=== PATIENT | female | born 1955 | race Caucasian/White ===

== ENCOUNTER 2024-05-06 22:29 | Inpatient (IN) | payer MEDICARE ==
[~2024-05-06] VITALS: Ht 147.3 cm; Wt 56.7 kg
[2024-05-07] VITALS (9 sets, daily range): BP systolic 106–116; BP diastolic 61–68; PULSE 63–74; RESP 17–20; TEMP 97.7–98.8; O2SAT 95–100
[2024-05-07] MEDS: FAMOTIDINE 20 MG/2 ML VIAL IV STA (00:27)
[2024-05-07] MEDS: ONDANSETRON HCL INJ 2MG/ML 2ML 2 MG/ML VIAL IV STA (00:27)
[2024-05-07] MEDS: SODIUM CHLORIDE 0.9% 1000ML 1,000 ML IV SCH (00:28)
[2024-05-07] MEDS ORDERED: IOPAMIDOL 370 MG/ML 100 ML INFUS..BTL INJ ONE ×2 (00:41→06:15)
[2024-05-07] MEDS ORDERED: ONDANSETRON HCL INJ 2MG/ML 2ML 2 MG/ML VIAL IV PRN (01:45)
[2024-05-07] MEDS ORDERED: D5.45%NS/KCL 20MEQ 1,000 ML IV SCH (01:45)
[2024-05-07] MEDS: SODIUM CHLORIDE 0.9% 1000ML 1,000 ML IV ONE (03:20)
[2024-05-07] MEDS: DEXTROSE 5%/0.45% SOD CHL 1,000 ML IV SCH (05:43)
[2024-05-07] MEDS: Morphine 2mg Syringe 2 MG/ML SYR IV PRN (06:10)
[2024-05-07] MEDS ORDERED: FAMOTIDINE 20 MG/2 ML VIAL IV SCH (09:00)
[2024-05-07] MEDS: FAMOTIDINE 20 MG/2 ML VIAL IV SCH (12:02)
[2024-05-07] MEDS ORDERED: BENZONATATE 100 MG CAP PO PRN (12:30)
[2024-05-07] MEDS ORDERED: DEXTROSE 50% SYRINGE 50 ML IV PRN (12:30)
[2024-05-07] MEDS ORDERED: POTASSIUM CHLORIDE 20 MEQ TAB CR PO PRN (12:30)
[2024-05-07] MEDS ORDERED: LIDOCAINE 4% PATCH TP PRN (12:30)
[2024-05-07] MEDS ORDERED: SIMETHICONE 80 MG CHEW PO PRN (12:30)
[2024-05-07] MEDS ORDERED: DOCUSATE SODIUM 100 MG CAP PO PRN (12:30)
[2024-05-07] MEDS ORDERED: MELATONIN 5 MG TABLET PO PRN (12:30)
[2024-05-07] MEDS ORDERED: HYDRALAZINE HCL 20 MG/ML VIAL IV PRN (12:30)
[2024-05-07] MEDS ORDERED: DIPHENHYDRAMINE HCL 25 MG CAP PO PRN (12:30)
[2024-05-07] MEDS ORDERED: ALBUTEROL/IPRATROPIUM 3 ML NEB NEB PRN (12:30)
[2024-05-07] MEDS: ENOXAPARIN SOD INJ 40 MG/0.4 ML SYR SC SCH (17:30)
[2024-05-08] VITALS (11 sets, daily range): BP systolic 113–146; BP diastolic 53–85; PULSE 57–66; RESP 18–21; TEMP 97.7–98; O2SAT 95–100
[2024-05-08 05:55] LABS: BASOPHILS % 0.8 % (0.0-1.0); EOSINOPHILS # (AUTO) 0.2 (0.0-0.4); EOSINOPHILS % 4.8 % (0.0-6.0); HEMATOCRIT 36.2 % (34.2-44.1); HEMOGLOBIN 12.2 g/dL (12.0-16.0); LYMPHOCYTES # (AUTO) 1.7 (1.0-3.2); LYMPHOCYTES % 34.9 % (18.0-39.1); MEAN CORPUSCULAR HEMOGLOBIN 30.7 pg (28-32); MEAN CORPUSCULAR HGB CONC 33.7 g/dL (31-35); MEAN CORPUSCULAR VOLUME 91.2 fL (81-99); MONOCYTES # (AUTO) 0.5 (0.2-0.8); MONOCYTES % 9.4 % (4.4-11.3); NEUTROPHILS # (AUTO) 2.5 (2.1-6.9); NEUTROPHILS % 49.9 % (38.7-80.0); PLATELET COUNT 255 x10e3/uL (140-360); RED BLOOD COUNT 3.97 x10e6/uL (3.6-5.1); RED CELL DISTRIBUTION WIDTH 12.8 % (11.7-14.4); WHITE BLOOD COUNT 4.99 x10e3/uL (4.8-10.8)
[2024-05-08 06:39] LABS: ALANINE AMINOTRANSFERASE 27 IU/L (0-55); ALBUMIN 3.1 g/dL (3.5-5.0); ALBUMIN/GLOBULIN RATIO 1.4 (0.8-2.0); ALKALINE PHOSPHATASE 49 IU/L (40-150); ANION GAP 13.5 mmol/L (8-16); BILIRUBIN,TOTAL 0.5 mg/dL (0.2-1.2); CARBON DIOXIDE 20 mmol/L (22-29); CHLORIDE 108 mmol/L (98-107); CREATININE, SERUM 0.82 mg/dL (0.57-1.11); EST GLOMERULAR FILTRATION RATE 77 ML/MIN (>=60); GLUCOSE 91 mg/dL (74-118); POTASSIUM 3.5 mmol/L (3.5-5.1); SODIUM 138 mmol/L (136-145); TOTAL PROTEIN 5.3 g/dL (6.5-8.1)
[2024-05-08 06:41] LABS: BUN/CREATININE RATIO 6 (6-25)
[2024-05-08 07:03] LABS: BLOOD UREA NITROGEN < 5 mg/dL (7-26)
[2024-05-08] MEDS: PANTOPRAZOLE SOD 40 MG TABEC PO SCH (07:54)
[2024-05-08] MEDS: ACETAMINOPHEN 325 MG TAB PO PRN (23:47)
[2024-05-09] VITALS (10 sets, daily range): BP systolic 119–156; BP diastolic 70–79; PULSE 58–74; RESP 19–21; TEMP 97.4–97.9; O2SAT 98–100
[2024-05-09 05:34] LABS: BASOPHILS # (AUTO) 0.1 (0.0-0.1); BASOPHILS % 0.9 % (0.0-1.0); EOSINOPHILS # (AUTO) 0.4 (0.0-0.4); EOSINOPHILS % 5.1 % (0.0-6.0); HEMATOCRIT 38.5 % (34.2-44.1); HEMOGLOBIN 12.4 g/dL (12.0-16.0); LYMPHOCYTES % 28.3 % (18.0-39.1); MEAN CORPUSCULAR HEMOGLOBIN 30.8 pg (28-32); MEAN CORPUSCULAR HGB CONC 32.2 g/dL (31-35); MEAN CORPUSCULAR VOLUME 95.5 fL (81-99); MONOCYTES # (AUTO) 0.5 (0.2-0.8); MONOCYTES % 7.5 % (4.4-11.3); NEUTROPHILS % 58.1 % (38.7-80.0); PLATELET COUNT 265 x10e3/uL (140-360); RED BLOOD COUNT 4.03 x10e6/uL (3.6-5.1); RED CELL DISTRIBUTION WIDTH 12.1 % (11.7-14.4); WHITE BLOOD COUNT 6.89 x10e3/uL (4.8-10.8)
[2024-05-09 06:04] LABS: ALANINE AMINOTRANSFERASE 30 IU/L (0-55); ALBUMIN 3.2 g/dL (3.5-5.0); ALBUMIN/GLOBULIN RATIO 1.4 (0.8-2.0); ALKALINE PHOSPHATASE 49 IU/L (40-150); ANION GAP 14.5 mmol/L (8-16); BILIRUBIN,TOTAL 0.5 mg/dL (0.2-1.2); BLOOD UREA NITROGEN < 5 mg/dL (7-26); CALCIUM 8.9 mg/dL (8.4-10.2); CARBON DIOXIDE 19 mmol/L (22-29); CHLORIDE 109 mmol/L (98-107); CREATININE, SERUM 0.78 mg/dL (0.57-1.11); EST GLOMERULAR FILTRATION RATE 82 ML/MIN (>=60); GLUCOSE 81 mg/dL (74-118); POTASSIUM 3.5 mmol/L (3.5-5.1); SODIUM 139 mmol/L (136-145); TOTAL PROTEIN 5.5 g/dL (6.5-8.1)
[2024-05-09 06:06] LABS: BUN/CREATININE RATIO 6 (6-25)
[2024-05-09] MEDS: AMOXICILLIN/CLAVULANATE K 875 MG TAB PO ONE (15:55)
== END 2024-05-09 16:30 | disposition home or self-care (01) | DRG 372 ==
LOC: FSED 22:58 → ERHOLD 05-07 01:41 → MED/SURG2 05-07 09:44
PROVIDERS: ADMIT Internal Medicine; ATTEND Internal Medicine
DX: A04.9 Bacterial intestinal infection, unspecified (principal); K56.609 Unspecified intestinal obstruction, unspecified as to partial versus complete obstruction; K63.89 Other specified diseases of intestine; I10 Essential (primary) hypertension; N20.0 Calculus of kidney
CPT/HCPCS: 36415; 74018; 74019; 74176; 74177; 80053; 81003; 83605; 83690; 83735; 85025; 93005; 94799; 96365; 96374; 96375; 99284; J1650; J2270; J2405; J2543; J7030; Q9967